=== PATIENT | male | born 1970 | race Caucasian/White ===

== ENCOUNTER 2016-12-03 16:32 | Emergency (ER) | payer SELFPAY ==
[~2016-12-03] VITALS: Ht 177.8 cm; Wt 72.6 kg
[2016-12-03 16:36] VITALS: BP 137/89; PULSE 115; RESP 16; TEMP 97; O2SAT 99
--- NOTE | 2016-12-03 16:45 | NUR ---
Patient states that he is here because there is darkness at home, and he believes that there is the light of [facility] in the ER. Patient denies suicidal ideation. States that he has good support at home in the form of his parents. Denies substance abuse. Denies social stressors. States that he does have an outpatient psychiatrist who he is unable to name at this time. States he does not want inpatient psychiatric treatment, believes that the problem is with [facility], not a psychiatric problem.
--- NOTE | 2016-12-03 17:01 | NUR ---
Seen in triage by Dr. Gottlieb.
--- NOTE | 2016-12-03 17:06 | NUR ---
Patient given written and verbal discharge instructions and verbalizes understanding. ER MD discussed with patient the results and treatment provided. Given copies of tests performed in ER. Patient in stable condition. ID arm band removed. Patient educated on pain management and to follow up with PMD. Pain Scale 0/10. Opportunity for questions provided and answered.
== END 2016-12-03 17:08 | disposition home or self-care (01) ==
LOC: SED 16:32
DX: F41.9 Anxiety disorder, unspecified (principal)
CPT/HCPCS: 99284